=== PATIENT | female | born 1990 | race Caucasian/White ===

== ENCOUNTER 2018-08-22 20:42 | Emergency (ER) | payer BC ==
[~2018-08-22] VITALS: Ht 157.5 cm; Wt 53.1 kg
[2018-08-22 20:58] VITALS: BP_SYST 106
--- NOTE | 2018-08-22 22:20 | NUR ---
Pt ambulatory to bed 6 for evaluation
--- NOTE | 2018-08-22 22:25 | NUR ---
Pt awake and alert. Pt C/O sore throat and fatigue x2 days. Denies any N/V/D. No signs of SOB or acute distress noted. Mother at bedside. Will continue to monitor.
--- NOTE | 2018-08-22 22:50 | NUR ---
ER MD OLIVEROS AT BEDSIDE EXAMINING PATIENT.
[2018-08-22 23:19] LABS: STREPTOCOCCUS A SCREEN (RAPID) NEGATIVE (NEGATIVE)
[2018-08-22] MEDS ORDERED: NACL 0.9% 500 ML IV ONE (23:30)
[2018-08-22] MEDS ORDERED: ACETAMINOPHEN 500 MG TABLET PO ONE (23:30)
--- NOTE | 2018-08-23 00:05 | NUR ---
Pt resting in bed. VSS. Mother at bedside. Will continue to monitor.
[2018-08-23 01:10] VITALS: BP_SYST 110
--- NOTE | 2018-08-23 01:10 | NUR ---
Patient given written and verbal discharge instructions and verbalizes understanding. ER MD Banerjee discussed with patient the results and treatment provided. Patient in stable condition. ID arm band removed. IV catheter removed intact and dressing applied, no active bleeding. Rx of Tamiflu, Motrin, and Promethazine given. Patient educated on pain management and to follow up with PMD. Pain Scale 0/10. Opportunity for questions provided and answered. Medication side effect fact sheet provided.
== END 2018-08-23 01:10 | disposition home or self-care (01) ==
LOC: SED 20:42
DX: J10.1 Influenza due to other identified influenza virus with other respiratory manifestations (principal)
CPT/HCPCS: 36415; 86403; 86710; 87081; 99283; J7030